=== PATIENT | female | born 1975 | race Caucasian/White ===

== ENCOUNTER → 2017-05-25 | Outpatient (CLI) | payer OTHER | LOC: BMCIMAGING 09:42 | DX: Z12.39 Encounter for other screening for malignant neoplasm of breast (principal); N63.20 Unspecified lump in the left breast, unspecified quadrant | CPT/HCPCS: G0204 ==

== ENCOUNTER → 2017-06-06 | Outpatient (CLI) | payer OTHER | LOC: FIMAGING 07:03 | PROC: 0WB83ZX Excision of Chest Wall, Percutaneous Approach, Diagnostic (ICD-10-PCS; principal; 2017-06-06) | DX: R22.2 Localized swelling, mass and lump, trunk (principal) ==

== ENCOUNTER → 2018-06-07 | Outpatient (CLI) | payer OTHER | LOC: BMCIMAGING 12:12 | PROVIDERS: ATTEND Family Medicine | DX: Z12.31 Encounter for screening mammogram for malignant neoplasm of breast (principal) ==